=== PATIENT | male | born 2000 | race Caucasian/White ===

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

== ENCOUNTER → 2020-02-01 | Outpatient (CLI) | payer BC | END | disposition home or self-care (01) ==

== ENCOUNTER → 2020-07-18 | Outpatient (CLI) | payer BC | END | disposition home or self-care (01) | LOC: CPPFTMAIN 13:26 | PROVIDERS: ATTEND Internal Medicine | DX: Z02.1 Encounter for pre-employment examination (principal) | CPT/HCPCS: 94060; 94726; 94729 ==

== ENCOUNTER → 2023-03-04 | Outpatient (CLI) | payer BC ==
--- NOTE | 2023-03-04 17:04 | XR ---
EXAMINATION TYPE: XR knee complete LT DATE OF EXAM: 03/04/2023 CLINICAL HISTORY: Pain. TECHNIQUE: Three views of the left knee are obtained. COMPARISON: None. FINDINGS: Suboptimal as there is some obliquity to the attempted lateral projection. There is no acut e fracture/dislocation evident in the left knee. The tri-compartment joint spaces appear within norm al limits. Suspect small to moderate-sized suprapatellar joint effusion. IMPRESSION: As above.
== END | disposition home or self-care (01) ==
LOC: RADXRYALE 16:37
PROVIDERS: ATTEND Physician Assistant
DX: M25.562 Pain in left knee (principal)

== ENCOUNTER → 2023-04-26 | Outpatient (CLI) | payer BC ==
--- NOTE | 2023-04-26 13:18 | CA ---
Transthoracic Echo Report Name: Mathew Stevens Age: 22 Gender: M : 2000 Exam Date: 04/26/2023 08:14 Exam Location: [place] [facility] Ht (in): 67 Wt (lb): 220 Ordering Physician: Flex Peacock DO Attending/Referring Phys: Lesli Capone PAC Compacting Machine Operator/Tender Lynne Palomo RDCS Procedure CPT: Indications: R07.9 CP, I10 HTN Cardiac Hx: Technical Quality: Fair Contrast 1: Total Dose (mL): Contrast 2: Total Dose (mL): MEASUREMENTS (Male / Female) Normal Values 2D ECHO LV Diastolic Diameter PLAX 4.1 cm 4.2 - 5.9 / 3.9 - 5.3 cm LV Systolic Diameter PLAX 2.2 cm IVS Diastolic Thickness 1.1 cm 0.6 - 1.0 / 0.6 - 0.9 cm LVPW Diastolic Thickness 1.0 cm 0.6 - 1.0 / 0.6 - 0.9 cm LV Relative Wall Thickness 0.5 RV Internal Dim ED PLAX 2.9 cm LA Volume 34.3 cm??? 18 - 58 / 22 - 52 cm??? M-MODE Aortic Root Diameter MM 2.4 cm LA Systolic Diameter MM 3.2 cm LA Ao Ratio MM 1.3 AV Cusp Separation MM 2.1 cm DOPPLER AV Peak Velocity 93.8 cm/s AV Peak Gradient 3.5 mmHg AV Mean Velocity 63.8 cm/s AV Mean Gradient 1.8 mmHg AV Velocity Time Integral 17.5 cm LVOT Peak Velocity 83.2 cm/s LVOT Peak Gradient 2.8 mmHg LVOT Velocity Time Integral 16.2 cm MV Area PHT 4.2 cm??? Mitral E Point Velocity 80.9 cm/s Mitral A Point Velocity 34.6 cm/s Mitral E to A Ratio 2.3 MV Deceleration Time 179.4 ms MV E' Velocity 11.3 cm/s Mitral E to MV E' Ratio 7.1 TR Peak Velocity 199.9 cm/s TR Peak Gradient 16.0 mmHg Right Ventricular Systolic Press 21.0 mmHg FINDINGS Left Ventricle Mildly increased left ventricular wall thickness. Left ventricular cavity size normal. Normal left ventricular systolic function with no obvious regional wall motion abnormalities. Left ventricular ejection fraction is estimated at 55-60 %. Right Ventricle Normal right ventricular size and function. Right ventricular systolic pressure within normal limits. Right Atrium Normal right atrial size. Left Atrium Normal left atrial size. Mitral Valve Structurally normal mitral valve. No mitral stenosis, regurgitation or prolapse. Aortic Valve No aortic valve stenosis or regurgitation. Tricuspid Valve Structurally normal tricuspid valve. No tricuspid stenosis or prolapse. Trace tricuspid regurgitation. Pulmonic Valve Structurally normal pulmonic valve. Mild pulmonic regurgitation. Pericardium No pericardial effusion. Aorta Normal size aortic root and proximal ascending aorta. CONCLUSIONS Normal LV systolic function Previewed by: Dr. Cameron Aguayo MD (Electronically Signed) Final Date: 26 April 2023 13:18
--- NOTE | 2023-04-26 13:36 | CA ---
Exercise Stress Test Report Name: Mathew Stevens Exam Date: 04/26/2023 08:58 Exam Location: [facility] Ht (in): Wt (lb): BSA: Ordering Phys: Flex Peacock DO Referring Phys: Lesli Capone PAC Technologist: Oscar Douglas Age: 22 Gender: M : 2000 Procedure CPT: Indications: R07.9 CP, I10 HTN ICD-10 Codes: Patient History: Chest pain Medications: Meds past 24 hrs: Pretest Chest Pain: STRESS TEST Marcos Protocol Exercise Duration (min:sec): 09:[address] Depressions (mm): Angina Score: Yee Score: Resting HR (bpm): 91 Peak HR (bpm): 186 Resting BP (mmHg): 141 / 93 Peak BP (mmHg): / 86 MPHR: 198 Target HR: 168 % MPHR: 94 METS: 10.3 Total Dose: Peak Dose: Atropine: Double Product: BP Response: Stress Termination: Reached target heart rate Stress Symptoms: Chest pressure peak at #5 was less as he walked and resolved at rest. Stress Summary: ECG ANALYSIS Resting ECG: Stress ECG: CONCLUSIONS Excellent exercise tolerance Normal EKG in response to exercise Dr. Cameron Aguayo MD (Electronically Signed) Final Date: 26 April 2023 13:36
== END | disposition home or self-care (01) ==
LOC: RADECHMAIN 08:01
PROVIDERS: ATTEND Family Medicine
DX: R07.9 Chest pain, unspecified (principal); I10 Essential (primary) hypertension
CPT/HCPCS: 93017; 93306

== ENCOUNTER → 2023-05-11 | Outpatient (CLI) | payer BC ==
[2023-05-17 16:38] LABS: Metanephrine, Free <25 pg/mL (< OR = 57); Normetanephrine, Free 42 pg/mL (< OR = 148); Total, Free (MN + NMN) 42 pg/mL (< OR = 205)
== END | disposition home or self-care (01) ==
LOC: LABWHC1 11:01
PROVIDERS: ATTEND Internal Medicine Cardiovascular Disease
DX: I10 Essential (primary) hypertension (principal)
CPT/HCPCS: 36415; 82088; 83835; 84244

== ENCOUNTER → 2023-11-01 | Outpatient (CLI) | payer BC ==
--- NOTE | 2023-11-01 15:55 | CT ---
EXAMINATION TYPE: CT abdomen pelvis w con DATE OF EXAM: 11/01/2023 COMPARISON: 05/29/2012 HISTORY: 22-year-old male R10.31, RLQ PAIN X4 DAYS. TECHNIQUE: Contiguous axial scanning of the abdomen and pelvis following administration of 100 ml Iso jose 300 IV contrast. Delayed images through the kidneys and coronal/sagittal reconstructions perform ed. CT DLP: 751.40 mGycm Automated exposure control for dose reduction was used. FINDINGS: LUNG BASES: No significant abnormality is appreciated. LIVER/GB: No significant abnormality is appreciated. PANCREAS: No significant abnormality is seen. SPLEEN: No significant abnormality is seen. ADRENALS: No significant abnormality is seen. KIDNEYS: No significant abnormality is seen. BOWEL: Normal appendix. No dilated small bowel. No significant stool burden. No pericolonic inflamma tory change. No significant abnormality is seen. LYMPH NODES: A few clustered prominent lymph nodes right lower quadrant mesentery measuring up to 9 m m may be reactive/post inflammatory. OTHER: No significant abnormality is seen. PELVIS: No significant abnormality is seen. BONES: No significant abnormality is seen. IMPRESSION: 1. A FEW CLUSTERED PROMINENT LYMPH NODES IN THE RIGHT LOWER QUADRANT MEASURING UP TO 9 MM LIKELY REAC TIVE/POST INFLAMMATORY. A MILD MESENTERIC ADENITIS IS ALSO A CONSIDERATION. 2. NORMAL APPENDIX. NO ACUTE INFLAMMATORY PROCESS OTHERWISE IDENTIFIED IN THE ABDOMEN OR PELVIS TO EX PLAIN THE PATIENT'S SYMPTOMS.
== END | disposition home or self-care (01) ==
LOC: RADCTMAIN 13:35
PROVIDERS: ATTEND Family Medicine
DX: R59.0 Localized enlarged lymph nodes (principal); D72.829 Elevated white blood cell count, unspecified; R10.31 Right lower quadrant pain
CPT/HCPCS: 74177; Q9967

== ENCOUNTER → 2023-12-16 | Outpatient (CLI) | payer BC ==
--- NOTE | 2023-12-16 14:51 | XR ---
EXAMINATION TYPE: XR hand complete RT DATE OF EXAM: 12/16/2023 CLINICAL HISTORY: pain TECHNIQUE: Frontal, lateral and oblique images of the right hand are obtained. COMPARISON: 02/01/2020 FINDINGS: There is no acute fracture/dislocation evident. The joint spaces appear within normal limi ts. The overlying soft tissue appears unremarkable. IMPRESSION: There is no acute fracture or dislocation ICD 10 NO FRACTURE, INITIAL EVALUATION
== END | disposition home or self-care (01) ==
LOC: RADXRYALE 14:32
PROVIDERS: ATTEND Physician Assistant Medical
DX: S62.306A Unspecified fracture of fifth metacarpal bone, right hand, initial encounter for closed fracture (principal)